=== PATIENT | male | born 1955 | race Caucasian/White ===

== ENCOUNTER 2016-12-25 17:39 | Emergency (ER) | payer BC ==
[2016-12-25] MEDS ORDERED: OXYCODONE-ACETAMINOPHEN 5-325 MG TABLET PO ONE (17:53)
--- NOTE | 2016-12-25 17:55 | ER Document Report ---
ED Medical Screen (RME) - General Stated Complaint: CAT SCRATCH Time seen by provider: 17:51 Notes: Patient states he was scratched on the left wrist on night by his daughters cat. Cat is up-to-date on immunizations. Arm is red with streaking up the arm with swelling. No known fever. I have greeted and performed a rapid initial assessment of this patient. A comprehensive ED assessment and evaluation of the patient, analysis of test results and completion of the medical decision making process will be conducted by additional ED providers. - Related Data Allergies/Adverse Reactions: No Known Allergies Allergy (Verified 12/25/16 17:50) Past Medical History - Past Medical History Cardiac Medical History: Reports: Hx Hypertension - medication Denies: Hx Heart Attack Pulmonary Medical History: Denies: Hx Asthma Neurological Medical History: Denies: Hx Cerebrovascular Accident, Hx Seizures GI Medical History: Denies: Hx Hepatitis, Hx Hiatal Hernia, Hx Ulcer Infectious Medical History: Denies: Hx Hepatitis Past Surgical History: Denies: Hx Open Heart Surgery, Hx Pacemaker
[2016-12-25] MEDS ORDERED: AMPICILLIN SOD/SULBACTAM 3 GM VIAL IV ONE (18:44)
[2016-12-25] MEDS ORDERED: DIPH/PERTUSS(ACELL)/TETANUS VAC/PF 0.5 ML SYR (>=10YO) IM ONE (18:46)
--- NOTE | 2016-12-25 18:49 | ER Document Report ---
ED Extremity Problem, Upper - General Chief Complaint: Arm Pain Stated Complaint: CAT SCRATCH Time seen by provider: 18:46 Mode of Arrival: Ambulatory Information source: Patient TRAVEL OUTSIDE OF THE [place] IN LAST 30 DAYS: No - HPI Patient complains to provider of: Injury, Pain, Swelling, Left, Hand Onset: Other - 3 days ago Recent injury: Yes Where: Home Quality of pain: Achy, Fullness, Pressure Severity of pain: Moderate Pain Level: 3 Context: Other - Cat scratch Exacerbated by: Movement Relieved by: Nothing Similar symptoms previously: No Recently seen / treated by doctor: No Notes: Patient is a 61-year-old male presenting to the emergency room complaining of infection from cat scratch that he sustained 3 days ago to his left hand, reports his daughter's cat who is otherwise healthy with vaccinations up to date scratched his hand, he did not immediately cleaned it out but instead placed a Band-Aid over it, over the past few days it's become increasingly red swollen and tender, his last tetanus shot is unknown, he denies any fevers, no other injuries - Related Data Allergies/Adverse Reactions: No Known Allergies Allergy (Verified 12/25/16 17:50) Past Medical History - General Information source: Patient - Social History Smoking Status: Current Every Day Smoker Chew tobacco use (# tins/day): No Frequency of alcohol use: Heavy Drug Abuse: None Family History: Reviewed & Not Pertinent Patient has suicidal ideation: No Patient has homicidal ideation: No - Past Medical History Cardiac Medical History: Reports: Hx Hypertension - medication Denies: Hx Heart Attack Pulmonary Medical History: Denies: Hx Asthma Neurological Medical History: Denies: Hx Cerebrovascular Accident, Hx Seizures Renal/ Medical History: Denies: Hx Peritoneal Dialysis GI Medical History: Denies: Hx Hepatitis, Hx Hiatal Hernia, Hx Ulcer Infectious Medical History: Denies: Hx Hepatitis Past Surgical History: Denies: Hx Open Heart Surgery, Hx Pacemaker Review of Systems - Review of Systems Constitutional: No symptoms reported EENT: No symptoms reported Cardiovascular: No symptoms reported Respiratory: No symptoms reported Gastrointestinal: No symptoms reported Genitourinary: No symptoms reported Male Genitourinary: No symptoms reported Musculoskeletal: No symptoms reported Skin: See HPI Hematologic/Lymphatic: No symptoms reported Neurological/Psychological: No symptoms reported -: Yes All other systems reviewed and negative Physical Exam - Vital signs Vitals: Temp Pulse Resp BP Pulse Ox 97.9 F 79 20 151/106 H 97 12/25/16 17:53 12/25/16 17:53 12/25/16 17:53 12/25/16 17:53 12/25/16 17:53 Interpretation: Normal - General General appearance: Appears well, Alert - HEENT Head: Normocephalic, Atraumatic Eyes: Normal Pupils: PERRL - Respiratory Respiratory status: No respiratory distress Chest status: Nontender Breath sounds: Normal Chest palpation: Normal - Cardiovascular Rhythm: Regular Heart sounds: Normal auscultation Murmur: No - Abdominal Inspection: Normal Distension: No distension Bowel sounds: Normal Tenderness: Nontender Organomegaly: No organomegaly - Back Back: Normal, Nontender - Extremities General upper extremity: Normal ROM, Normal temperature General lower extremity: Normal inspection, Nontender, Normal color, Normal ROM , Normal temperature, Normal weight bearing. No: Bella's sign Hand: Swelling - Dorsal surface of left hand with 2 scratches at the base of the hands, with surrounding erythema and swelling, small amount of streaking the undersurface of the wrist, distal sensation and motor is intact, there is brisk capillary refill and 2+ radial pulses - Neurological Neuro grossly intact: Yes Cognition: Normal Orientation: AAOx4 Ruma Coma Scale Eye Opening: Spontaneous Stanley Coma Scale Verbal: Oriented Ruma Coma Scale Motor: Obeys Commands Ruma Coma Scale Total: 15 Speech: Normal Motor strength normal: LUE, RUE, LLE, RLE Sensory: Normal - Psychological Associated symptoms: Normal affect, Normal mood - Skin Skin Temperature: Warm Skin Moisture: Dry Skin Color: Normal Course - Re-evaluation Re-evalutation: 12/25/16 19:56 Patient resting comfortably with stable vital signs, Unasyn has been completed and he is doing well, patient is noted to have leukocytosis, and his results were discussed at bedside, patient will be discharged with a prescription for antibiotics and advised to follow up with his primary care provider first thing Tuesday morning or return if symptoms worsen or fail to improve over the next 2- 3 days, patient and spouse at bedside acknowledge understanding and agreement with this plan - Vital Signs Vital signs: Temp Pulse Resp BP Pulse Ox 97.9 F 79 20 151/106 H 97 12/25/16 17:53 12/25/16 17:53 12/25/16 17:53 12/25/16 17:53 12/25/16 17:53 - Laboratory Result Diagrams: 12/25/16 18:40 12/25/16 18:40 Laboratory results interpreted by me: 12/25/16 12/25/16 18:40 18:40 WBC 17.7 H Seg Neutrophils % 80.0 H Lymphocytes % 11.5 L Absolute Neutrophils 14.2 H Carbon Dioxide 21 L Discharge - Discharge Clinical Impression: Cellulitis Qualifiers: Site of cellulitis: extremity Site of cellulitis of extremity: upper extremity Laterality: left Qualified Code(s): L03.114 - Cellulitis of left upper limb Cat scratch of hand Qualifiers: Encounter type: initial encounter Laterality: left Qualified Code(s): S60.512A - Abrasion of left hand, initial encounter; W55.03XA - Scratched by cat, initial encounter Condition: Stable Disposition: HOME, SELF-CARE Instructions: Cellulitis ([facility]), Animal Bites ([facility]) Additional Instructions: Follow up with your primary care provider in one to 2 days. Return to the emergency room immediately if symptoms worsen or any additional concerns. Prescriptions: Penicillin V Potassium [Penicillin Vk 500 mg Tablet] 500 mg PO TID #30 tablet
[2016-12-25 19:02] LABS: ABSOLUTE BASOPHILS # (AUTO) 0.2 10^3/uL (0.0-0.2); ABSOLUTE MONOCYTES (AUTO) 1.3 10^3/uL (0.1-1.4); ABSOLUTE NEUT (AUTO) 14.2 10^3/uL (1.7-8.2); BASOPHILS % (AUTO) 0.9 % (0-2); EOSINOPHILS % (AUTO) 0.2 % (0-6); HEMATOCRIT 47.5 % (37.9-51.0); HEMOGLOBIN 15.9 g/dL (13.5-17.0); HGB HCT DIFFERENCE 0.2; LYMPHOCYTES % (AUTO) 11.5 % (13-45); MEAN CORPUSCULAR HEMOGLOBIN 32.3 pg (27.0-33.4); MEAN CORPUSCULAR HGB CONC 33.4 g/dL (32.0-36.0); MEAN CORPUSCULAR VOLUME 97 fl (80-97); MONOCYTES % (AUTO) 7.4 % (3-13); RED BLOOD COUNT 4.92 10^6/uL (4.35-5.55); RED CELL DISTRIBUTION WIDTH 12.5 % (11.5-14.0); WHITE BLOOD COUNT 17.7 10^3/uL (4.0-10.5)
[2016-12-25 19:23] LABS: ALANINE AMINOTRANSFERASE 50 U/L (21-72); ALBUMIN 4.4 g/dL (3.5-5.0); ALKALINE PHOSPHATASE 101 U/L (38-126); ANION GAP 14 (5-19); ASPARTATE AMINO TRANSFERASE 42 U/L (17-59); BILIRUBIN,TOTAL 1.3 mg/dL (0.2-1.3); BLOOD UREA NITROGEN 16 mg/dL (7-20); CALCIUM 9.5 mg/dL (8.4-10.2); CARBON DIOXIDE 21 mmol/L (22-30); CHLORIDE 104 mmol/L (98-107); CREATININE RESULT 1.05 mg/dL (0.52-1.25); GLUCOSE 106 mg/dL (75-110); POTASSIUM 4.2 mmol/L (3.6-5.0); TOTAL PROTEIN 7.7 g/dL (6.3-8.2)
[2016-12-25 20:24] VITALS: BP 149/82
== END 2016-12-25 20:15 | disposition home or self-care (01) ==
LOC: ER 17:39
DX: S60.512A Abrasion of left hand, initial encounter (principal); L03.114 Cellulitis of left upper limb; W55.03XA Scratched by cat, initial encounter; Y92.009 Unspecified place in unspecified non-institutional (private) residence as the place of occurrence of the external cause; F17.200 Nicotine dependence, unspecified, uncomplicated; I10 Essential (primary) hypertension
CPT/HCPCS: 99283; 90471; 96365; 36415; 87040; 85025; 80053; 90715; J0295